=== PATIENT | male | born 1965 | race Caucasian/White ===

== ENCOUNTER 2018-01-27 11:22 | Emergency (ER) | payer OTHER ==
[2018-01-27] MEDS ORDERED: NA CHLORIDE 0.9% 2,000 ML ONE (11:31)
[2018-01-27] MEDS ORDERED: CEFAZOLIN/SWI 1gm 2 GM/20 ML SYR ONE (11:31)
[2018-01-27] MEDS ORDERED: TETANUS & DIPHTHERIA TOX,ADULT 0.5 ML VIAL ONE ×2 (11:32→15:03)
[2018-01-27 11:55] LABS: Absolute Lymphocytes (CBC) 2.8 K/uL (0.7-4.9); Absolute Monocytes 0.6 K/uL (0.1-1.3); Absolute Neutrophil 3.4 K/uL (1.8-8.0); Basophils % 1.5 % (0-1.3); Eosinophils % 0.5 % (0-4.4); Hematocrit 42.2 % (39.6-49.0); Lymphocytes % 40.4 % (15.3-44.8); MCH 31.9 pg (27.0-35.0); MCV 94.8 fL (80-100); Monocytes % 8.6 % (3.3-12.3); RBC Red Blood Cell Count 4.45 M/uL (4.33-5.43)
[2018-01-27] MEDS ORDERED: LIDOCAINE 1% 20 ML MDV ONE ×2 (12:12→13:21)
--- NOTE | 2018-01-27 12:31 | RAD REPORT ---
EXAM DESCRIPTION: RAD - Shoulder Right 2 View - 01/27/2018 12:26 pm CLINICAL HISTORY: Fall, right shoulder pain COMPARISON: None. FINDINGS: Mild AC joint degenerative changes are seen. No acute fracture or dislocation is appreciat ed.
--- NOTE | 2018-01-27 12:32 | RAD REPORT ---
EXAM DESCRIPTION: CT - Head C Spine Cap Ashley Cardoza - 01/27/2018 12:07 pm CLINICAL HISTORY: Trauma, head and neck injury. Chest, abdomen and pelvis pain. COMPARISON: None. TECHNIQUE: CT head without contrast. CT cervical spine without contrast with coronal and sagittal reformatted images. CT chest, abdomen and pelvis with contrast with coronal and sagittal reformatted images of the spine. All CT scans are performed using dose optimization technique as appropriate and may include automated exposure control or mA/KV adjustment according to patient size. FINDINGS: CT HEAD WITHOUT CONTRAST: No intracranial hemorrhage, hydrocephalus or extra-axial fluid collection. No areas of brain edema o r midline shift. The paranasal sinuses and mastoids are clear. The calvarium is intact. CT CERVICAL SPINE WITHOUT CONTRAST: No fracture or subluxation. Prominent spondylosis C5-6. The prevertebral soft tissues are normal in t hickness. CT CHEST, ABDOMEN, PELVIS WITH CONTRAST: The lungs are clear.No pneumothorax or pericardial/pleural fluid. No evidence of intra-abdominal visceral injury, free fluid or free air. Prominent fatty liver is note d with hepatic hypodensities, likely benign cysts. No concerning pelvic findings. No fractures. IMPRESSION: Negative for acute traumatic findings.
--- NOTE | 2018-01-27 14:53 | EDPHYS ---
Physician Documentation [facility] Name: Eric Pierce Age: 52 yrs Sex: Male : 1965 Arrival Date: 01/27/2018 Time: 11: Bed 7 Private MD: ED Physician Michael Keene HPI: 01/27 15:00 This 52 yrs old Male presents to ER via Ambulatory with complaints of Fall jr8 Injury, Laceration To Leg. 15:00 Details of fall: The patient fell from a height, from a ladder. Onset: The jr8 symptoms/episode began/occurred acutely, today. Associated injuries: The patient sustained left leg, ecchymosis, laceration, right arm. Severity of symptoms: At their worst the symptoms were moderate, in the emergency department the symptoms are unchanged. The patient has not experienced similar symptoms in the past. The patient has not recently seen a physician. Patient stated that he was up on a ladder cleaning his camper. Lost balance causing him to fall backward. Stated that he noticed large laceration to back of left leg. Pain to right shoulder. Denies LOC . Patient upon arrival was pale and hypotensive . Historical: - Allergies: 11:45 No Known Allergies; sv - Immunization history:: Adult Immunizations up to date. - Immunization history: Last tetanus immunization: unknown. - Social history:: Smoking status: Patient/guardian denies using tobacco. ROS: 15:00 Eyes: Negative for injury, pain, redness, and discharge, ENT: Negative for injury, jr8 pain, and discharge, Neck: Negative for injury, pain, and swelling, Cardiovascular: Negative for chest pain, palpitations, and edema, Respiratory: Negative for shortness of breath, cough, wheezing, and pleuritic chest pain, Abdomen/GI: Negative for abdominal pain, nausea, vomiting, diarrhea, and constipation, Back: Negative for injury and pain, Neuro: Negative for headache, weakness, numbness, tingling, and seizure. 15:00 MS/extremity: Positive for ecchymosis, laceration, pain, tenderness, of the left leg, Tenderness to right shoulder . Exam: 15:00 Head/Face: Normocephalic, atraumatic. Eyes: Pupils equal round and reactive to light, jr8 extra-ocular motions intact. Lids and lashes normal. Conjunctiva and sclera are non-icteric and not injected. Cornea within normal limits. Periorbital areas with no swelling, redness, or edema. ENT: Nares patent. No nasal discharge, no septal abnormalities noted. Tympanic membranes are normal and external auditory canals are clear. Oropharynx with no redness, swelling, or masses, exudates, or evidence of obstruction, uvula midline. Mucous membranes moist. Neck: Trachea midline, no thyromegaly or masses palpated, and no cervical lymphadenopathy. Supple, full range of motion without nuchal rigidity, or vertebral point tenderness. No Meningismus. Cardiovascular: Regular rate and rhythm with a normal S1 and S2. No gallops, murmurs, or rubs. Normal PMI, no JVD. No pulse deficits. Respiratory: Lungs have equal breath sounds bilaterally, clear to auscultation and percussion. No rales, rhonchi or wheezes noted. No increased work of breathing, no retractions or nasal flaring. Abdomen/GI: Soft, non-tender, with normal bowel sounds. No distension or tympany. No guarding or rebound. No evidence of tenderness throughout. Back: No spinal tenderness. No costovertebral tenderness. Full range of motion. MS/ Extremity: Pulses equal, no cyanosis. Neurovascular intact. Full, normal range of motion. Tenderness to right shoulder Neuro: Awake and alert, GCS 15, oriented to person, place, time, and situation. Cranial nerves II-XII grossly intact. Motor strength 5/5 in all extremities. Sensory grossly intact. Cerebellar exam normal. Normal gait. 15:00 Skin: injury, laceration(s), the wound is approximately 12 cm(s), with a depth of 1 cm(s), of the back of left knee, that can be described as contaminated, foreign body containing, irregular, with mild bleeding. Vital Signs: 11:32 BP 104 / 76; Pulse 63; Resp 16; Temp 98.1(O); Pulse Ox 96% on R/A; sv 11:43 Weight 83.91 kg; sv 12:19 BP 106 / 74; Pulse 63; Resp 18; Temp 98.1; Pulse Ox 98% on R/A; sv 13:00 BP 108 / 75; Pulse 61; Resp 18; Pulse Ox 99% ; sv 14:00 BP 102 / 71; Pulse 66; Resp 18; Pulse Ox 99% ; sv 15:15 BP 116 / 80; Pulse 76; Resp 18; Pulse Ox 99% ; sv Joselito Coma Score: 11:25 Eye Response: to pain(2). Verbal Response: confused(4). Motor Response: obeys sv commands(6). Total: 12. 11:45 Eye Response: spontaneous(4). Verbal Response: oriented(5). Motor Response: obeys sv commands(6). Total: 15. 12:19 Eye Response: spontaneous(4). Verbal Response: oriented(5). Motor Response: obeys sv commands(6). Total: 15. 15:28 Eye Response: spontaneous(4). Verbal Response: oriented(5). Motor Response: obeys sv commands(6). Total: 15. Trauma Score (Adult): 11:25 Eye Response: to pain(0); Verbal Response: confused(1); Motor Response: obeys sv commands(2); Systolic BP: 50 to 75 mm Hg(2); Respiratory Rate: 10 to 29 per min(4); [place] Score: 12; Trauma Score: 9 11:45 Eye Response: spontaneous(1); Verbal Response: oriented(1); Motor Response: obeys sv commands(2); Systolic BP: > 89 mm Hg(4); Respiratory Rate: 10 to 29 per min(4); Joselito Score: 15; Trauma Score: 12 12:19 Eye Response: spontaneous(1); Verbal Response: oriented(1); Motor Response: obeys sv commands(2); Systolic BP: > 89 mm Hg(4); Respiratory Rate: 10 to 29 per min(4); [place] Score: 15; Trauma Score: 12 15:28 Eye Response: spontaneous(1); Verbal Response: oriented(1); Motor Response: obeys sv commands(2); Systolic BP: > 89 mm Hg(4); Respiratory Rate: 10 to 29 per min(4); Joselito Score: 15; Trauma Score: 12 Laceration: 14:49 Wound Repair of 15cm ( 5.9in ) subcutaneous laceration to left popliteal region . jr8 Irregularly shaped.. Minimal bleeding noted.. Moderate contamination.. Distal neuro/vascular/tendon intact. Anesthesia: Local anesthetic administered with 20 mls of 1% lidocaine. Wound prep: Extensive cleansing with betadine, Wound irrigation with saline, Particulate matter removal of dirt of grass, Wound margin revised minimally, Wound debrided moderately, Wound explored extensively, Copious irrigation. Skin closed with 22 3-0 Prolene using interrupted sutures and sterile technique. Patient tolerated well. MDM: 11:26 Patient medically screened. jr8 14:49 Data reviewed: vital signs, nurses notes, lab test result(s), radiologic studies, CT jr8 scan, plain films, and as a result, I will discharge patient. Data interpreted: Pulse oximetry: on room air is 98 %. Interpretation: normal. Counseling: I had a detailed discussion with the patient and/or guardian regarding: the historical points, exam findings, and any diagnostic results supporting the discharge/admit diagnosis, lab results, radiology results, the need for outpatient follow up, a family practitioner, to return to the emergency department if symptoms worsen or persist or if there are any questions or concerns that arise at home. ED course: Detailed discussion that patient needs to be non weight bearing and not to bend knee for 2 weeks or until stitches are taken out. Watch for signs of infection . 15:00 Response to treatment: the patient's symptoms have markedly improved after treatment, jr8 patient is well hydrated. 01/27 11:27 Order name: Basic Metabolic Panel; Complete Time: 12:08 8 01/27 11:27 Order name: CBC with Diff; Complete Time: 12:01 8 01/27 11:27 Order name: Creatinine for Radiology; Complete Time: 12:08 8 01/27 11:27 Order name: Type And Screen; Complete Time: 14:29 8 01/27 11:36 Order name: CT Traumagram (Head C Spine CAP W Con); Complete Time: 12:35 01/27 13:14 Order name: ABO/RH no charge; Complete Time: 14:29 EDMS 01/27 11:27 Order name: Labs collected and sent; Complete Time: 11:44 01/27 11:28 Order name: IV - Large Bore; Complete Time: 11:43 01/27 12:11 Order name: XRAY Shoulder RIGHT 2 view; Complete Time: 12:35 8 01/27 12:09 Order name: Prolene, Sutures; Complete Time: 12:33 8 01/27 12:09 Order name: Dressing - Wound; Complete Time: 15:24 01/27 12:09 Order name: Gloves, Sterile; Complete Time: 12:15 01/27 12:09 Order name: Setup Suture Tray; Complete Time: 12:15 01/27 14:53 Order name: Knee Immobilizer; Complete Time: 15:01 Administered Medications: 11:42 Drug: Ancef 2 grams Route: IVPB; Infused Over: 30 mins; Site: left antecubital; sv 11:50 Follow up: Response: No adverse reaction; IV Status: Completed infusion; IV Intake: sv 20ml ; given IVP per pharmacy 11:43 Drug: NS 0.9% (20 ml/kg) 20 ml/kg Route: IV; Rate: 1 bolus; Site: left antecubital; sv 13:00 Follow up: Response: No adverse reaction; IV Status: Completed infusion; IV Intake: sv 1600ml 13:31 Drug: Lidocaine (1 %) 1 vials {Note: given to Idris LOERA for procedure.} Volume: 20 ml; sv Route: Infiltration; 15:23 Drug: Tetanus-Diphtheria Toxoid Adult 0.5 ml {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 Exp: sv 05/09/2020. Lot #: [id number]. } Route: IM; Site: left deltoid; 15:23 Follow up: Response: Medication administered at discharge. sv Disposition: 01/28 09:26 Co-signature as Attending Physician, Michael Keene MD I agree with the assessment and jennifer plan of care. Disposition: 01/27/18 14:53 Discharged to Home. Impression: Laceration with foreign body, left lower leg. - Condition is Stable. - Discharge Instructions: Laceration Care, Adult. - Prescriptions for Keflex 500 mg Oral Capsule - take 1 capsule by ORAL route every 8 hours for 10 days; 30 capsule. Tylenol- Codeine #3 300-30 mg Oral Tablet - take 2 tablet by ORAL route every 6 hours As needed; 30 tablet. - Medication Reconciliation Form, Thank You Letter, Antibiotic Education, Prescription Opioid Use form. - Follow up: Private Physician; When: 2 - 3 days; Reason: Wound Recheck, Recheck today's complaints, Continuance of care, Re-evaluation by your physician. - Problem is new. - Symptoms have improved. - Notes: Sutures to be removed between 10 and 14 days Signatures: Dispatcher [employer] EDMS Ventura, Deborah, Michael Azul RN, MD MD cha Roszak, Josh, PA PA jr8
--- NOTE | 2018-01-27 14:53 | ER ---
Nurse's Notes [facility] Name: Eric Pierce Age: 52 yrs Sex: Male : 1965 Arrival Date: 01/27/2018 Time: : Bed 7 Private MD: Diagnosis: Laceration with foreign body, left lower leg Presentation: 01/27 11:25 Mechanism of Injury: Fall from ladder an unknown distance. Trauma event details: Injury sv occurred in the [facility], Injury occurred: at home. Injury occurred: January 27, 2018. 11:26 Presenting complaint: Patient states: I fell about 10 feet off of a ladder. Large skin la1 avulsion noted to left posterior knee. Pt denies LOC, it triage pt briefly became unresponsive to verbal stimulus and BP was 50s systolic. Transition of care: patient was not received from another setting of care. Onset of symptoms was January 27, 2018. Initial Sepsis Screen: Does the patient meet any 2 criteria? No. Patient's initial sepsis screen is negative. Does the patient have a suspected source of infection? No. Patient's initial sepsis screen is negative. Care prior to arrival: None. 11:26 Method Of Arrival: Ambulatory la1 11:26 Acuity: KATEY 1 la1 Trauma Activation: Alert Physician: ED Physician; Name: Dr Keene; Notified At: 11:19; Arrived At: 11:19 Physician: General Surgeon; Name: ; Notified At: 11:19; Arrived At: Physician: Radiology; Name: Elizabeth-xray and Donna-CT; Notified At: 11:19; Arrived At: Physician: Respiratory; Name: ; Notified At: 11:19; Arrived At: Physician: Lab; Name: ; Notified At: 11:19; Arrived At: 11:19 Primary RN: Brad STONE and Secondary RN: Deborah STONE, engineering technician parking: Angie baker Historical: - Allergies: :45 No Known Allergies; sv - Immunization history:: Adult Immunizations up to date. - Immunization history: Last tetanus immunization: unknown. - Social history:: Smoking status: Patient/guardian denies using tobacco. Screenin:45 Abuse screen: Denies threats or abuse. Denies injuries from another. Tuberculosis sv screening: No symptoms or risk factors identified. 12:19 Nutritional screening: No deficits noted. Fall Risk No fall in past 12 months (0 pts). sv Secondary diagnosis (15 points) impaired mobility, IV access (20 points). Ambulatory Aid- None/Bed Rest/Nurse Assist (0 pts). Gait- Impaired (20 pts.). Mental Status- Oriented to own ability (0 pts). Total Saba Fall Scale indicates High Risk Score (45 or more points). Fall prevention measures have been instituted. Side Rails Up X 2 Placed Close to Nursing Station Frequent Obs/Assessments Occuring As available patient and family educated on Fall Prevention Program and Strategies. Primary Survey: 11:25 A: Airway: patent, No supplemental oxygen in use on arrival. Oral cavity: clear, sg Trachea midline. Breathing/Chest: Respiratory pattern: regular, Respiratory effort: spontaneous, unlabored, Chest inspection: symmetrical rise and fall of the chest. Circulation: Cardiac rhythm: sinus rhythm Heart tones present. Pulses: palpable right radial artery, right dorsalis pedis artery, left radial artery and left dorsalis pedis artery. Skin color: ashen, Skin temperature: diaphoretic. Disability Painful Stimuli. 11:45 Reassessment Airway Airway Patent Oxygen No O2 Oral cavity Clear Trachea Midline sg Breathing/Chest Respiratory pattern Regular Respiratory effort Spontaneous Unlabored Chest inspection Symmetrical Circulation Heart rhythm Sinus rhythm Heart tones Present Pulses Palpable Color Pale Temperature Moist Cool Disability Alert. Secondary Survey: 11:25 HEENT: No deficits noted. Gastrointestinal: No deficits noted. : No deficits noted. sg No signs and/or symptoms were reported regarding the genitourinary system. Musculoskeletal: Range of motion: limited in left knee. Injury Description: Avulsion sustained to posterior aspect of left knee and left calf is partial was sustained 30-60 minutes ago. Assessment: 12:19 Reassessment: Patient appears in no apparent distress at this time. No changes from sv previously documented assessment. Patient and/or family updated on plan of care and expected duration. Pain level reassessed. Patient is alert, oriented x 3, equal unlabored respirations, skin warm/dry/pink. 13:20 Reassessment: Patient appears in no apparent distress at this time. No changes from sv previously documented assessment. Patient and/or family updated on plan of care and expected duration. Pain level reassessed. Patient is alert, oriented x 3, equal unlabored respirations, skin warm/dry/pink. Idris LOERA at bedside for sutures. 15:30 Reassessment: Patient appears in no apparent distress at this time. Patient and/or sv family updated on plan of care and expected duration. Pain level reassessed. Patient is alert, oriented x 3, equal unlabored respirations, skin warm/dry/pink. Patient states feeling better. Patient states symptoms have improved. Vital Signs: 11:32 BP 104 / 76; Pulse 63; Resp 16; Temp 98.1(O); Pulse Ox 96% on R/A; sv 11:43 Weight 83.91 kg; sv 12:19 BP 106 / 74; Pulse 63; Resp 18; Temp 98.1; Pulse Ox 98% on R/A; sv 13:00 BP 108 / 75; Pulse 61; Resp 18; Pulse Ox 99% ; sv 14:00 BP 102 / 71; Pulse 66; Resp 18; Pulse Ox 99% ; sv 15:15 BP 116 / 80; Pulse 76; Resp 18; Pulse Ox 99% ; sv Hasty Coma Score: 11:25 Eye Response: to pain(2). Verbal Response: confused(4). Motor Response: obeys sv commands(6). Total: 12. 11:45 Eye Response: spontaneous(4). Verbal Response: oriented(5). Motor Response: obeys sv commands(6). Total: 15. 12:19 Eye Response: spontaneous(4). Verbal Response: oriented(5). Motor Response: obeys sv commands(6). Total: 15. 15:28 Eye Response: spontaneous(4). Verbal Response: oriented(5). Motor Response: obeys sv commands(6). Total: 15. Trauma Score (Adult): 11:25 Eye Response: to pain(0); Verbal Response: confused(1); Motor Response: obeys sv commands(2); Systolic BP: 50 to 75 mm Hg(2); Respiratory Rate: 10 to 29 per min(4); Hasty Score: 12; Trauma Score: 9 11:45 Eye Response: spontaneous(1); Verbal Response: oriented(1); Motor Response: obeys sv commands(2); Systolic BP: > 89 mm Hg(4); Respiratory Rate: 10 to 29 per min(4); Hasty Score: 15; Trauma Score: 12 12:19 Eye Response: spontaneous(1); Verbal Response: oriented(1); Motor Response: obeys sv commands(2); Systolic BP: > 89 mm Hg(4); Respiratory Rate: 10 to 29 per min(4); Hasty Score: 15; Trauma Score: 12 15:28 Eye Response: spontaneous(1); Verbal Response: oriented(1); Motor Response: obeys sv commands(2); Systolic BP: > 89 mm Hg(4); Respiratory Rate: 10 to 29 per min(4); Joselito Score: 15; Trauma Score: 12 ED Course: 11:22 Patient arrived in ED. as 11:25 Initial lab(s) drawn, by me, sent to lab. Inserted saline lock: 18 gauge in right sv antecubital area, using aseptic technique. Blood collected. Flushed right antecubital with 5 ml normal saline. 11:25 Patient maintains SpO2 saturation greater than 95% on room air. sv 11:25 Patient has correct armband on for positive identification. Bed in low position. Call sv light in reach. Side rails up X2. groundwater monitoring technician on. Pulse ox on. NIBP on. 11:26 Brad Ortiz, BERTHA is Primary Nurse. sg 11:26 Idris Minor PA is PHCP. jr8 11:26 Michael Keene MD is Attending Physician. jr8 11:27 Triage completed. la1 11:27 Inserted saline lock: 18 gauge in left antecubital area, using aseptic technique. sv 11:35 Wound care: to avulsion located on posterior aspect of left knee was dressed with went sg spongegauze, dry 4x4's and an acewrap were applied. 11:46 Arm band placed on right wrist. sv 11:46 Head of bed elevated. sv 12:06 CT completed. Patient moved to CT via stretcher. Patient moved back from CT. cw1 12:07 CT Traumagram (Head C Spine CAP W Con) In Process Unspecified. EDMS 12:20 Thermoregulation: Pt refused blanket at this time. sv 12:21 X-ray(s) taken. sv 12:26 XRAY Shoulder RIGHT 2 view In Process Unspecified. EDMS 12:35 Awaiting re-evaluation by ER provider, Awaiting: Sutures by PA. sv 13:20 Assist provider with laceration repair on posterior aspect of left knee that was sv between 7.6 to 12.5 cm using sutures. Set up tray. Performed by Idris LOERA Dressed with 4X4s, Kerlix, Neosporin, Patient tolerated well. 15:00 IV discontinued, intact, bleeding controlled, No redness/swelling at site. Pressure sv dressing applied, to left and right AC. Dressings: Kerlix X 1; left knee non-adherent dressing x 1 posterior aspect of left knee 4X4s X 1; posterior aspect of left knee. 15:15 Crutch training done. Knee immobilizer applied on left knee. sv Administered Medications: 11:42 Drug: Ancef 2 grams Route: IVPB; Infused Over: 30 mins; Site: left antecubital; sv 11:50 Follow up: Response: No adverse reaction; IV Status: Completed infusion; IV Intake: sv 20ml ; given IVP per pharmacy 11:43 Drug: NS 0.9% (20 ml/kg) 20 ml/kg Route: IV; Rate: 1 bolus; Site: left antecubital; sv 13:00 Follow up: Response: No adverse reaction; IV Status: Completed infusion; IV Intake: sv 1600ml 13:31 Drug: Lidocaine (1 %) 1 vials {Note: given to Idris LOERA for procedure.} Volume: 20 ml; sv Route: Infiltration; 15:23 Drug: Tetanus-Diphtheria Toxoid Adult 0.5 ml {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 Exp: sv 05/09/2020. Lot #: [id number]. } Route: IM; Site: left deltoid; 15:23 Follow up: Response: Medication administered at discharge. sv Intake: 11:25 PO: 0ml; Total: 0ml. sv 11:50 IV: 20ml; Total: 20ml. sv 13:00 IV: 1600ml; Total: 1620ml. sv Output: 11:25 Urine: 0ml; Total: 0ml. sv 15:28 Urine: 600ml (Voided); Total: 600ml. sv Outcome: 14:53 Discharge ordered by jrRosa 15:28 Discharged to home via wheelchair, with crutches, with family, with knee immobilizer sv 15:28 Condition: stable 15:28 Discharge instructions given to patient, family, Instructed on discharge instructions, follow up and referral plans. no drinking with medication, no driving heavy equipment, medication usage, crutch walking, wound care, knee immobilizer Demonstrated understanding of instructions, follow-up care, medications, wound care, crutch walking, knee immobilizer application Prescriptions given X 2. 15:29 Patient's length of stay in the Emergency Department was greater than 2 hours. due to sv suture placement.Patient's length of stay extended due to 15:31 Patient left the ED. sv Signatures: Dispatcher [employer] Deborah Younger RN RN Brad Ortiz RN RN sg Martinez, Amelia as Woodley, Crystal cw1 Idris Minor PA PA jr8 Agus Valente RN RN la1 Corrections: (The following items were deleted from the chart) 11:46 11:32 BP 104 / 76; Pulse 63bpm; Resp 16bpm; Pulse Ox 96% RA; sv sv 12:20 11:25 GCS: 15, sv sv 12:20 11:25 Hasty Score=15, Trauma Score=12, sv sv
== END 2018-01-27 15:31 | disposition home or self-care (01) ==
LOC: ER 11:22
PROC: 0JQP0ZZ Repair Left Lower Leg Subcutaneous Tissue and Fascia, Open Approach (ICD-10-PCS; principal; 2018-01-27)
DX: S81.822A Laceration with foreign body, left lower leg, initial encounter (principal); W11.XXXA Fall on and from ladder, initial encounter; Y93.H9 Activity, other involving exterior property and land maintenance, building and construction; Y92.89 Other specified places as the place of occurrence of the external cause; Z23 Encounter for immunization
CPT/HCPCS: 36415; 70450; 71260; 72125; 74177; 80048; 85025; 86850; 86900; 86901; 90714; 96361; 96374; 99291; 99292; J0690; J7030; Q9967

== ENCOUNTER 2021-11-03 05:46 | Emergency (ER) | payer OTHER, SELFPAY ==
[2021-11-03] MEDS ORDERED: NA CHLORIDE 0.9% 1,000 ML ONE (06:28)
[2021-11-03] MEDS ORDERED: MORPHINE 4 MG/ML SYR ONE (06:28)
[2021-11-03] MEDS ORDERED: ONDANSETRON 4 MG/2 ML VIAL ONE (06:29)
[2021-11-03 06:31] LABS: Absolute Lymphocytes (CBC) 1.7 K/uL (0.7-4.9); Hematocrit 42.3 % (39.6-49.0); Lymphocytes % 29.8 % (15.3-44.8); MPV 7.9 fL (7.6-11.3); RBC Red Blood Cell Count 4.54 M/uL (4.33-5.43)
[2021-11-03 06:35] LABS: Protime INR 0.91
[2021-11-03 06:45] LABS: Potassium 4.9 mmol/L (3.5-5.1)
--- NOTE | 2021-11-03 07:45 | ER ---
Nurse's Notes [facility] Name: Eric Pierce Age: 55 yrs Sex: Male : 1965 Arrival Date: 11/03/2021 Time: 05:48 Bed 13 Private MD: Diagnosis: Displaced comminuted fracture of left patella, initial encounter for closed fracture;Fall on same level, unspecified Presentation: 11/03 05:48 Chief complaint: EMS states: they were toned out for report of pt tripping over dog and bb falling with deformity to left knee. Care prior to arrival: None. Mechanism of Injury: Fall from standing position. Trauma event details: Injury occurred in the [facility], Injury occurred: at home. Injury occurred: November 03, 2021. 05:48 Acuity: KATEY 3 bb 05:48 Method Of Arrival: EMS: [facility] bb 05:56 Coronavirus screen: At this time, the client does not indicate any symptoms associated bb with coronavirus-19. Ebola Screen: No symptoms or risks identified at this time. Initial Sepsis Screen: Does the patient meet any 2 criteria? No. Patient's initial sepsis screen is negative. Does the patient have a suspected source of infection? No. Patient's initial sepsis screen is negative. Risk Assessment: Do you want to hurt yourself or someone else? Patient reports no desire to harm self or others. Onset of symptoms was November 03, 2021. Trauma Activation: Alert Physician: ED Physician; Name: Pedro; Notified At: 05:45; Arrived At: 05:45 Physician: General Surgeon; Name: ; Notified At: 05:45; Arrived At: Physician: Radiology; Name: Jennifer; Notified At: 05:45; Arrived At: 05:46 Physician: Respiratory; Name: ; Notified At: 05:45; Arrived At: Physician: Lab; Name: ; Notified At: 05:45; Arrived At: Historical: - Allergies: 05:56 No Known Allergies; bb - Home Meds: 05:56 Lisinopril Oral [Active]; Metoprolol Tartrate Oral [Active]; bb - PMHx: 05:56 Hypertensive disorder; bb - Immunization history: Last tetanus immunization: unknown. - Social history:: Smoking status: unknown. Screenin:48 Abuse screen: Denies threats or abuse. Tuberculosis screening: No symptoms or risk bb factors identified. 08:12 Nutritional screening: No deficits noted. Fall Risk Fall in past 12 months (25 points). ww No secondary diagnosis (0 pts). IV access (20 points). Ambulatory Aid- Crutches/Cane/Walker (15 pts). Gait- Normal/Bed Rest/Wheelchair (0 pts) Mental Status- Oriented to own ability (0 pts). Total Saba Fall Scale indicates High Risk Score (45 or more points). Fall prevention measures have been instituted. Side Rails Up X 2 Placed Close to Nursing Station Family Present and informed to notify staff if the need to leave the bedside. Primary Survey: 05:48 NO uncontrolled hemorrhage observed. Breathing/Chest: Respiratory pattern: regular, bb Respiratory effort: spontaneous, unlabored. Circulation: Heart tones present. Disability Alert. 08:07 Exposure/Environment: Obvious injury(ies) are noted at this time: left patella. ww Reassessment Breathing/Chest Respiratory pattern Regular Respiratory effort Unlabored. Secondary Survey: 05:48 HEENT: No deficits noted. Gastrointestinal: No deficits noted. Musculoskeletal: bb deformity to left knee. Assessment: 05:48 General: Appears in no apparent distress. uncomfortable, Behavior is calm, cooperative. bb Pain: Complains of pain in left knee Pain currently is 1 out of 10 on a pain scale. Neuro: Level of Consciousness is awake, alert, obeys commands, Oriented to person, place, time, situation. Cardiovascular: Capillary refill < 3 seconds Patient's skin is warm and dry. Respiratory: Airway is patent Respiratory effort is even, unlabored, Respiratory pattern is regular. GI: No deficits noted. Derm: Skin is pink, warm \T\ dry. Musculoskeletal: Circulation, motion, and sensation intact. to left knee. 06:59 Reassessment: Patient appears in no apparent distress at this time. No changes from ll3 previously documented assessment. Patient and/or family updated on plan of care and expected duration. Pain level reassessed. Patient is alert, oriented x 3, equal unlabored respirations, skin warm/dry/pink. 08:07 General: Appears in no apparent distress. Behavior is calm, cooperative. Neuro: Level ww of Consciousness is awake, alert, obeys commands, Oriented to person, place, time, situation. Respiratory: Airway is patent Respiratory effort is even, unlabored, Respiratory pattern is regular, symmetrical. Musculoskeletal: Circulation, motion, and sensation intact. left knee cap abrasion and swelling, knee immobilizer in place, cap refill on lower extremity <3 and patient able to move toes. Vital Signs: 05:48 BP 160 / 86; Pulse 79; Resp 16 S; Temp 98.6(TE); Pulse Ox 99% on R/A; Weight 88.45 kg bb (R); Height 5 ft. 10 in. (177.80 cm) (R); Pain /10; 05:48 Body Mass Index 27.98 (88.45 kg, 177.80 cm) bb Joselito Coma Score: 05:48 Eye Response: spontaneous(4). Verbal Response: oriented(5). Motor Response: obeys bb commands(6). Total: 15. Trauma Score (Adult): 05:48 Eye Response: spontaneous(1); Verbal Response: oriented(1); Motor Response: obeys bb commands(2); Systolic BP: > 89 mm Hg(4); Respiratory Rate: 10 to 29 per min(4); Joselito Score: 15; Trauma Score: 12 ED Course: 05:48 Patient arrived in ED. bb 05:48 Patient has correct armband on for positive identification. Bed in low position. Call bb light in reach. Side rails up X 1. 05:48 Patient maintains SpO2 saturation greater than 95% on room air. bb 05:51 Triage completed. bb 05:56 Arm band placed on Patient placed in an exam room, on a stretcher. bb 06:05 Radha Grajeda, BERTHA is Primary Nurse. ll3 06:12 Michael Dennis PA is PHCP. cp 06:12 Marcos Vasquez MD is Attending Physician. cp 06:22 XRAY Knee LEFT 3 view In Process Unspecified. EDMS 07:32 Attending Physician role handed off by Marcos Vasquez MD cp 07:32 Humble Mosley MD is Attending Physician. cp 07:44 Keaton Cuevas MD is Referral Physician. cp 08:11 No provider procedures requiring assistance completed. Patient did not have IV access ww during this emergency room visit. 08:13 Thermoregulation: offered warm blanket and patient politely refused. ww Administered Medications: 06:40 Drug: morphine 4 mg Route: IVP; Site: right forearm; mk 06:40 Drug: NS 0.9% 500 ml Route: IV; Rate: bolus; Site: right femoral; mk 06:40 Drug: NS 0.9% 500 ml Route: IV; Rate: 125 ml/hr; Site: right antecubital; mk Intake: 05:48 PO: 0ml; Total: 0ml. bb Outcome: 07:45 Discharge ordered by . murphy 08:07 Discharged to home with family. ww 08:07 Condition: stable 08:07 Patient's length of stay in the Emergency Department was greater than 2 hours. 08:12 Discharge instructions given to patient, family, Instructed on discharge instructions, ww follow up and referral plans. safety practices, Demonstrated understanding of instructions, follow-up care, medications, wound care, crutch walking. 08:13 Patient left the ED. ww Signatures: Dispatcher [employer] EDJo Fernandez RN RN bb Michael Dennis, PA PA Radha Alford RN RN ll3 Beverly Siu RN Vika Hector RN BERTHA mckeon
--- NOTE | 2021-11-03 07:45 | EDPHYS ---
Physician Documentation [facility] Name: Eric Pierce Age: 55 yrs Sex: Male : 1965 Arrival Date: 11/03/2021 Time: 05:48 Bed 13 Private MD: ED Physician Humble Mosley HPI: 11/03 06:15 This 55 yrs old Male presents to ER via EMS with complaints of Fall Injury. cp 06:15 Details of fall: The patient fell from an upright position, while walking. Onset: The cp symptoms/episode began/occurred just prior to arrival. Associated injuries: The patient sustained left knee, decreased range of motion, deformity, obvious fracture, painful injury. Historical: - Allergies: 05:56 No Known Allergies; bb - Home Meds: 05:56 Lisinopril Oral [Active]; Metoprolol Tartrate Oral [Active]; bb - PMHx: 05:56 Hypertensive disorder; bb - Immunization history: Last tetanus immunization: unknown. - Social history:: Smoking status: unknown. ROS: 06:45 MS/extremity: Positive for injury or acute deformity, decreased range of motion, pain, cp swelling, tenderness, of the left knee, Negative for paresthesias. 06:45 Constitutional: Negative for body aches, chills, fever, poor PO intake. cp 06:45 Neck: Negative for pain with movement, pain at rest, stiffness. 06:45 Cardiovascular: Negative for chest pain. 06:45 Respiratory: Negative for cough, shortness of breath, wheezing. 06:45 Abdomen/GI: Negative for abdominal pain, nausea, vomiting, and diarrhea. 06:45 Back: Negative for pain at rest, pain with movement. 06:45 Neuro: Negative for altered mental status, headache, loss of consciousness, syncope, weakness. 06:45 All other systems are negative. Exam: 06:48 Constitutional: The patient appears in no acute distress, alert, awake, non-toxic, well cp developed, well nourished. 06:48 Head/Face: Normocephalic, atraumatic. cp 06:48 Chest/axilla: Inspection: normal. 06:48 Cardiovascular: Rate: normal, Rhythm: regular. 06:48 Respiratory: the patient does not display signs of respiratory distress, Respirations: normal, no use of accessory muscles, no retractions, labored breathing, is not present, Breath sounds: are clear throughout, no decreased breath sounds. 06:48 Abdomen/GI: Inspection: abdomen appears normal, Palpation: abdomen is soft and non-tender, in all quadrants. 06:48 Back: pain, is absent, ROM is normal. 06:48 Musculoskeletal/extremity: Extremities: grossly normal except: noted in the anterior aspect of left knee: noted swelling, pain to palpation, deformity and crepitus of left patella. abrasion noted anterior patella, ROM: limited active range of motion, in the left knee, Perfusion: the extremity is normally perfused throughout, the left leg Sensation intact. 06:48 Neuro: Orientation: to person, place \T\ time. Mentation: is normal. Vital Signs: 05:48 BP 160 / 86; Pulse 79; Resp 16 S; Temp 98.6(TE); Pulse Ox 99% on R/A; Weight 88.45 kg bb (R); Height 5 ft. 10 in. (177.80 cm) (R); Pain 1/10; 05:48 Body Mass Index 27.98 (88.45 kg, 177.80 cm) bb Joselito Coma Score: 05:48 Eye Response: spontaneous(4). Verbal Response: oriented(5). Motor Response: obeys bb commands(6). Total: 15. Trauma Score (Adult): 05:48 Eye Response: spontaneous(1); Verbal Response: oriented(1); Motor Response: obeys bb commands(2); Systolic BP: > 89 mm Hg(4); Respiratory Rate: 10 to 29 per min(4); Maxwell Score: 15; Trauma Score: 12 Procedures: 07:45 Splinting: Splint applied to left knee using knee immobilizer, applied by nurse. cp Examined by me, post splint application: neurovascular intact, Patient tolerated well. MDM: 05:51 Patient medically screened. rn 06:52 Physician consultation: Keaton Cuevas MD was called at 06:45, message left on cp voicemail. 07:00 Differential diagnosis: contusion, fracture, laceration, multiple trauma. cp 07:15 Physician consultation: Keaton Cuevas MD was called at 07:15, left message on cp voicemail. 07:30 Physician consultation: Keaton Cuevas MD was called at 07:30, was contacted at 07:30, cp regarding consult, patient's condition, wants patient placed in knee immobilizer and can discharge to home to f/u in clinic. 07:43 Data reviewed: vital signs, nurses notes, lab test result(s), radiologic studies, plain cp films. Test interpretation: by ED physician or midlevel provider: plain radiologic studies. Counseling: I had a detailed discussion with the patient and/or guardian regarding: the historical points, exam findings, and any diagnostic results supporting the discharge/admit diagnosis, lab results, radiology results, the need for outpatient follow up, for definitive care, a orthopedic surgeon, to return to the emergency department if symptoms worsen or persist or if there are any questions or concerns that arise at home. Response to treatment: the patient's symptoms have markedly improved after treatment. 11/03 05:50 Order name: CBC with Diff; Complete Time: 07:12 rn 11/03 05:50 Order name: Basic Metabolic Panel; Complete Time: 07:12 rn 11/03 05:50 Order name: XRAY Knee LEFT 3 view rn 11/03 05:50 Order name: Protime (+inr); Complete Time: 07:12 rn 11/03 05:50 Order name: Ptt, Activated; Complete Time: 07:12 rn 11/03 05:50 Order name: IV Start; Complete Time: 05:55 rn 11/03 05:50 Order name: NPO; Complete Time: 06:02 rn 11/03 06:27 Order name: Knee Immobilizer; Complete Time: 06:58 cp Administered Medications: 06:40 Drug: morphine 4 mg Route: IVP; Site: right forearm; mk 06:40 Drug: NS 0.9% 500 ml Route: IV; Rate: bolus; Site: right femoral; mk 06:40 Drug: NS 0.9% 500 ml Route: IV; Rate: 125 ml/hr; Site: right antecubital; mk Disposition: 08:00 Chart complete. cp 09:01 Co-signature as Attending Physician, Humble Mosley MD I agree with the assessment and kdr plan of care. Disposition Summary: 11/03/21 07:45 Discharge Ordered Location: Home cp Problem: new cp Symptoms: have improved cp Condition: Stable cp Diagnosis - Displaced comminuted fracture of left patella, initial encounter for closed fracturecp - Fall on same level, unspecified cp Followup: cp - With: Keaton Cuevas MD - When: 2 - 3 days - Reason: Recheck today's complaints Discharge Instructions: - Discharge Summary Sheet cp - Fall Prevention in the Home, Adult cp - Patellar Fracture, Adult cp Forms: - Medication Reconciliation Form cp - Thank You Letter cp - Antibiotic Education cp - Prescription Opioid Use cp Prescriptions: - Ibuprofen 800 mg Oral Tablet - take 1 tablet by ORAL route every 8 hours As needed take with food; 30 tablet; cp Refills: 0, Product Selection Permitted - Tylenol-Codeine #3 300 mg-30 mg Oral - take 2 tablet by ORAL route every 8-10 hours; 20 tablet; Refills: 0, Product cp Selection Permitted Signatures: Dispatcher [employer] EDMS Hubmle Mosley MD MD kdr Ballard, Brenda, RN RN Marcos Cheema MD MD rn Page, Corey, PA PA cp Vika Phoenix RN RN mk Corrections: (The following items were deleted from the chart) 07:42 07:36 Crutches ordered. cp ww
--- NOTE | 2021-11-03 08:12 | RAD REPORT ---
EXAM DESCRIPTION: RAD - Knee Left 3 View - 11/03/2021 6:22 am CLINICAL HISTORY: deformity, patella fracture, fall with leg pain COMPARISON: No comparisons FINDINGS: The femur, tibia and fibula show no suspicious findings. Transverse fracture is present th rough the midportion of the patella. Additional fracture line is seen in the medial aspect of the dis francisco fracture fragment. There is distraction of approximately 3 cm between the 2 main patella fracture fragments.No measurable joint effusion. No soft tissue foreign body identified. IMPRESSION: Transverse fracture of the patella with 3 cm of superior migration of the proximal fract ure fragment. Distal fracture fragment is comminuted.
[2021-11-03 08:18] VITALS: BP 160/86; TEMP 98.6; O2SAT 99
== END 2021-11-03 08:13 | disposition home or self-care (01) ==
LOC: ER 05:46
DX: S82.042A Displaced comminuted fracture of left patella, initial encounter for closed fracture (principal); W18.30XA Fall on same level, unspecified, initial encounter; I10 Essential (primary) hypertension
CPT/HCPCS: 85025; 80048; 36415; 85610; 85730; 73562; 96374; 99284; J7040; J2405